=== PATIENT | female | born 1980 | race Caucasian/White ===

== ENCOUNTER 2022-02-23 18:47 | Emergency (ER) | payer BC, SELFPAY ==
[2022-02-23 18:50] VITALS: BP 125/79; PULSE 79; RESP 18; TEMP 36.6; O2SAT 99
[2022-02-23 19:42] VITALS: BP 122/75; PULSE 68; RESP 18; O2SAT 100
[2022-02-23] MEDS: METOCLOPRAMIDE HCL INJ 10 MG/2 ML VIAL IM (19:49)
[2022-02-23] MEDS: diphenhydrAMINE HCl CAP 25 MG CAPSULE 50 MG PO (19:49)
--- NOTE | 2022-02-23 20:22 | ED.HA ---
HPI - Headache General Chief Complaint: Headache Stated Complaint: VIVAR x 8 days Time Seen by Provider: 02/23/22 19:27 History of Present Illness HPI Narrative: About a week ago started having a throbbing headache, has had headaches like this before and some with history of migraines, though its been months since last time she has headache like this. She does have an appointment with her doctor however it's not til next week. She has no focal numbness or weakness, no difficulty walking, has been hard to sleep due to the pain. Related Data Allergies Allergy/AdvReac Type Severity Reaction Status Date / Time hydromorphone [From Dilaudid] Allergy Unknown Verified 02/23/22 19:41 tramadol Allergy Unknown Verified 02/23/22 19:41 Review of Systems Review of Systems: CONST: No fever. HEENT: No sore throat C/V: No chest pain RESP: No cough GI: No abdominal : No dysuria. M/S: No joint pain. SKIN: No rash. NEURO: [Headache, no focal numbness or weakness] PSYCH: [No depression] REPLACED BY [facility] Past Medical History Medical History (Updated 02/24/22 @ 01:10 by Trista Cade MD) Frequent headaches Exam Narrative: EXAMINATION OF ORGAN SYSTEMS/BODY AREAS: Constitutional: Vital signs per nursing GENERAL: Looks somewhat uncomfortable in bed but not ill appearing HEAD: Normal with no signs of head trauma. EYES: EOMI, conjunctiva normal ENT: Hearing grossly intact LUNGS: Nonlabored breathing. HEART: [Regular rate and rhythm] ABD: [Soft], [nontender to palpation] EXT: Normal range of motion SKIN: [No rashes or lesions.] NEURO: [Alert and oriented x 3. No gross focal sensory or strength deficits.] PSYCH: Normal affect Course Vital Signs Vital signs: Vital Signs Temperature 97.9 F 02/23/22 18:50 Pulse Rate 79 02/23/22 18:50 Respiratory Rate 18 02/23/22 18:50 Blood Pressure 125/79 02/23/22 18:50 Pulse Oximetry 99 02/23/22 18:50 Oxygen Delivery Room Air 02/23/22 18:50 Temperature 97.9 F 02/23/22 18:50 Pulse Rate 64 02/23/22 21:13 Respiratory Rate 18 02/23/22 21:13 Blood Pressure 108/70 02/23/22 21:13 Pulse Oximetry 99 02/23/22 21:13 Oxygen Delivery Room Air 02/23/22 19:42 MDM - Headache MDM Narrative Medical decision making narrative: 41 year old female presents to the emergency department for headache. Patient is hemodynamically stable. No focal neurological or cranial nerve deficits on exam. No meningeal signs. The headache was gradual in onset, it is not exertional and does not appear consistent with subarachnoid hemorrhage or intracranial bleeding. No trauma. Patient is given headache cocktail including Reglan, Benadryl. On reevaluation, the patient feels significantly better with the headache resolved. She feels great, is ambulating with normal steady gait. No neurological deficits. Patient is comfortable going home for outpatient follow-up with primary care physician and/or neurology and provided with strict return precautions, especially for worsening headaches, neck pain/stiffness, fever or weakness, numbness/tingling or persistent vomiting. Discharge Plan Discharge Clinical Impression: Headache Patient Disposition: Home, Self-Care Condition: Improved Instructions: Antibiotic Form, Acute Headache (ED) Additional Instructions: Come back to the ER if you feel worse; follow up with your doctor in the next 2 days. Follow-up/Referrals: Emil Garnica MD [Primary Care Provider] - 2 Days
[2022-02-23 21:13] VITALS: BP 108/70; PULSE 64; RESP 18; O2SAT 99
== END 2022-02-23 21:15 | disposition home or self-care (01) ==
PROVIDERS: Emergency Provider Emergency Medicine; PCP Family Medicine
DX: R51.9 Headache, unspecified (principal)
CPT/HCPCS: 96372; 99283; A9270; J2765

== ENCOUNTER 2022-03-14 12:21 | Outpatient (RCR) | payer BC, SELFPAY ==
--- NOTE | 2022-03-14 13:41 | PTOPEVAL1 ---
Assessment and note entered by Fred Verde, PT, DPT Evaluation Information Assessment Status Evaluation Diagnosis cervicalgia Onset chronic Subjective Information Pt states her neck is also sore and stiff which triggers migraines. She states her headaches have progressively gotten worse over this time. She does not report a JADA or anything that alters her pain. She reports 1 migraine day and a more mild lingering headache daily. Reported Pain Level Pain Score 4: Self Report Assessment PT Clinical Summary Joanne presents to therapy today for her initial evaluation with a diagnosis of cervicalgia. Today she demonstrates mild decreased cervical ROM in all directions. She demonstrates excellent shoulder ROM and good shoulder strength, neither of these increase pain. She has point tenderness with increased tissue density in her suboccipital and cervical paraspinals. Today she was instructed in a home stretching and strengthening program as well as given education on proper living mechanics to incorporate into her job. She is to complete her HEP on her own for a month and follow up with the clinic if needed. Plan of Care Interventions Hot Pack/Cold Pack,Manual Therapy,Neuro Re- education,Patient/Caregiver Educati,Therapeutic Activities,Therapeutic Exercise PT Services Indicated Yes Treatment Frequency and for follow up in one month if needed Duration These treatments will address the objective and functional deficits as defined above. The patient will be advanced safely and appropriately in order for the patient to progress towards his/her prior level of function. Additional exercises will be introduced and as well as a comprehensive home exercise program upon discharge, if needed, ?to ensure carryover of functional gains achieved in the clinic. This treatment plan has been reviewed and agreement upon by the patient.
--- NOTE | 2022-05-11 09:06 | PTOPDC ---
Assessment and note entered by Fred Verde, PT, DPT Evaluation Information Assessment Status Discharge - Pt Not Present Diagnosis cervicalgia Onset chronic Subjective Information Called and spoke to patient to follow up on HEP. She states she thinks the exercises are helping. She reports she still has mild headaches but her migraines have decreased significantly. Assessment PT Clinical Summary Joanne was evaluated on 03/14/22 and has been completing her HEP on her own. She will be discharged from skilled therapy services at this time. If she needs additional therapy at a later date she will need a new order. Plan of Care Interventions Hot Pack/Cold Pack,Manual Therapy,Neuro Re- education,Patient/Caregiver Educati,Therapeutic Activities,Therapeutic Exercise PT Services Indicated Yes Treatment Frequency and discharge Duration
== END 2022-05-11 13:39 | disposition home or self-care (01) ==
LOC: ANHGOSHPT 12:21
PROVIDERS: PCP Family Medicine; Visit Provider Family Medicine
DX: M54.2 Cervicalgia (principal); G89.29 Other chronic pain
CPT/HCPCS: 97110; 97140; 97161; 97530

== ENCOUNTER 2022-06-29 17:01 | Outpatient (CLI) | payer BC, SELFPAY ==
--- NOTE | ~2022-06-29 | XR_ITS ---
EXAMINATION: XR sinus min 3V DATE: 06/29/2022 17:54 INDICATION: Nasal polyp TECHNIQUE: AP, submental, Mahoney, open-mouth Mahoney and lateral and left and right lateral views of t he nasal bones were obtained. COMPARISON: None. FINDINGS: No fractures identified. Specifically the visualized le of the orbits and paranasal sinuses appea r intact. Nasal septum is midline. No nasal bone fracture identified. The left mastoid appears hypop neumatized. There is greater than expected density at the maxillary sinuses particularly on the right . There is also increased density at the cephalad aspect of the right nasal cavity and at the right f rontal sinus relative to the left. IMPRESSION: 1. Increased density at the bilateral maxillary sinuses, right greater than left,, right nasal cavity and at the right frontal sinus which could be due to fluid, mucosal thickening or polyps. 2. Hypopneumatized left mastoid. Reviewed, dictated and finalized at location A. IMPRESSION: 1. Increased density at the bilateral maxillary sinuses, right greater than lef t,, right nasal cavity and at the right frontal sinus which could be due to flu id, mucosal thickening or polyps. 2. Hypopneumatized left mastoid.
== END 2022-06-29 17:02 | disposition home or self-care (01) ==
PROVIDERS: PCP Family Medicine; Visit Provider Family Medicine
DX: J32.9 Chronic sinusitis, unspecified (principal)
CPT/HCPCS: 70220

== ENCOUNTER → 2022-09-08 13:48 | Outpatient (CLI) | payer BC, SELFPAY ==
--- NOTE | ~2022-09-08 | MM_ITS ---
EXAMINATION: MM screening [facility] BI w reuben HISTORY: Baseline screening mammogram TECHNIQUE: Craniocaudal and mediolateral oblique 3-D tomosynthesis images were obtained and synthetic 2-D images were generated. CAD analysis was submitted and interpreted. COMPARISON: None, baseline BREAST PARENCHYMAL COMPOSITION: The breasts are heterogeneously dense, which may obscure small masses . FINDINGS: RIGHT BREAST: There is a possible mass in the middle third of the outer breast best appreciated at th e anterior fibroglandular margin 4 cm from the nipple on the craniocaudal view. LEFT BREAST: No suspicious mass, calcification, or architectural distortion are identified to suggest malignancy. IMPRESSION: 1. Possible right breast mass. 2. Additional mammographic views and possible breast ultrasound are recommended to evaluate the possi ble right breast mass and establish a baseline given that this is the first mammographic examination. BI-RADS Category 0: Incomplete: Needs additional imaging evaluation. Reviewed, dictated and finalized at location A. IMPRESSION: 1. Possible right breast mass. 2. Additional mammographic views and possible breast ultrasound are recommended to evaluate the possible right breast mass and establish a baseline given that this is the first mammographic examination. BI-RADS Category 0: Incomplete: Needs additional imaging evaluation.
== END ==
PROVIDERS: PCP Family Medicine; Visit Provider Nurse Practitioner
DX: Z12.31 Encounter for screening mammogram for malignant neoplasm of breast (principal); R92.8 Other abnormal and inconclusive findings on diagnostic imaging of breast
CPT/HCPCS: 77063; 77067

== ENCOUNTER → 2022-09-13 13:41 | Outpatient (CLI) | payer BC, SELFPAY ==
--- NOTE | ~2022-09-13 | MMUS_ITS ---
EXAMINATION: MM diagnostic [facility] RT w reuben, US breast RT limited HISTORY: Possible right breast mass reported in middle third of outer breast near anterior fibrogland ular margin 4 cm from nipple on 09/08/2022 screening craniocaudal view TECHNIQUE: Additional 3-D tomosynthesis images of the right breast were performed and synthetic 2-D i mages were generated. CAD analysis was submitted and interpreted. High resolution upper outer and low er-outer quadrant right breast ultrasound was performed. COMPARISON: 09/08/2022 bilateral screening mammogram FINDINGS: MAMMOGRAPHIC FINDINGS: There is an approximately 3 x 4 mm circumscribed opacity anteriorly in the outer mid right breast at approximately 9:00 position. This has benign mammographic appearance. ULTRASOUND: 9:00 2.5 cm from nipple: Parallel circumscribed hypoechoic 2 x 4 x 3.6 mm benign-appearing lymph node . No suspicious mass or shadowing is detected. IMPRESSION: 1. Benign intramammary lymph node at 9:00; no mammographic or sonographic evidence of malignancy 2. Routine annual mammographic screening is recommended BI-RADS Category 2: Benign finding(s). Reviewed, dictated and finalized at location A. IMPRESSION: 1. Benign intramammary lymph node at 9:00; no mammographic or sonographic evide nce of malignancy 2. Routine annual mammographic screening is recommended BI-RADS Category 2: Benign finding(s).
== END ==
PROVIDERS: PCP Family Medicine; Visit Provider Family Medicine
DX: N63.10 Unspecified lump in the right breast, unspecified quadrant (principal)
CPT/HCPCS: 76642; 77061; 77065; G0279

== ENCOUNTER 2023-07-20 11:02 | Emergency (ER) | payer BC, SELFPAY ==
[2023-07-20 11:30] VITALS: BP 90/58; PULSE 81; RESP 18; TEMP 36.6; O2SAT 100
--- NOTE | 2023-07-20 12:02 | ED.UPPEXIN ---
HPI - Extremity Injury (Upper) General Chief Complaint: Extremity Injury, Upper Stated Complaint: Right Elbow pain Source: patient Mode of arrival: ambulatory Limitations: no limitations History of Present Illness HPI narrative: 43-year-old female presented for complaint of right elbow pain for 2 months. She states this started after yard work. Endorses pain with gripping. Reports normal range of motion, however she has pain with full extension. Has been taking ibuprofen. Denies radiating pain, numbness, tingling, weakness. Related Data Home Medications Medication Instructions Recorded Confirmed levothyroxine 75 mcg capsule 75 mcg PO DAILY 03/01/22 07/20/23 Allergies Allergy/AdvReac Type Severity Reaction Status Date / Time hydromorphone [From Dilaudid] Allergy Unknown Verified 07/20/23 11:40 tramadol Allergy Unknown Verified 07/20/23 11:40 Review of Systems Review of Systems: CONSTITUTIONAL: Denies body aches, fever, chills CARDIOVASCULAR: Denies chest pain, palpitations, or edema. RESPIRATORY: Denies cough or dyspnea. GASTROINTESTINAL: Denies abdominal pain, nausea, vomiting, or diarrhea. SKIN: Denies rash, itching, or wounds. MUSCULOSKELETAL: Reports right elbow pain NEUROLOGIC: Denies headache, numbness, tingling, or weakness. All systems reviewed & are unremarkable except as noted in HPI and below PMFSH Past Medical History Medical History Anxiety Breast mass, right Chronic neck pain Depression Frequent headaches Headache History of thyroid cancer Hypothyroidism (acquired) Migraine Thyroid cancer (~2008) Surgical History Surgical History H/O thyroidectomy (~2008) Family History Family History Father Alcoholism Grandparent Cancer Maternal great grandmother Breast Cancer Heart disease Cerebrovascular accident Maternal grandpa Alcoholism Hypertension Maternal Grandfather Daughter Anxiety and depression Son Anxiety and depression Social History Social History Smoking packs per day: 0.5 Smoking cigarettes per day: 10.0 Smoking status: Current every day smoker Tobacco type: cigarettes Alcohol intake: never Substance use: never Substance use type: does not use Lack of Transportation: No Lack of Food: Never True Current Housing: I Have Housing Concerned About Future Housing: No Difficulty Paying Gas/Electric Bills: No Difficulty Paying for Meds: No Currently Unemployed: No Education: High School Diploma/GED Difficulty w/ Childcare or Family Care: No Living arrangements: with family Occupation/Education: occupation Gender identity (if verbalized by the patient): Female Sexual Orientation (if Verbalized by the Patient): Straight or Heterosexual Spiritual care concerns: No Agree to blood products: Yes Comments At time of signature, I have reviewed and agree with nursing past medical, surgical, social and family history unless otherwise noted. Please see nursing chart for further information. There is no relevant family history pertinent to the presenting complaint Exam Narrative: GENERAL: Well-appearing, well-nourished, and in no acute distress. CHEST: Speaks in full sentences. No respiratory distress. HEART: Regular rate and rhythm. Normal and equal peripheral pulses. EXTREMITIES: Right arm/hand has normal strength and sensation, Full range of motion with flexion/extension of elbow with subjective pain with movement. Right lateral olecranon tender with palpation. No swelling, erythema, ecchymosis. No open wounds, or obvious deformity; alignment normal, pulse palpable and equal bilaterally, skin warm, dry, pink. Capillary refill less than 3 seconds. SKIN: Warm, dry, no rash. NEURO: Al
== END 2023-07-20 12:17 | disposition home or self-care (01) ==
PROVIDERS: Emergency Provider Nurse Practitioner Family; PCP Family Medicine
DX: M25.521 Pain in right elbow (principal); F17.210 Nicotine dependence, cigarettes, uncomplicated; E89.0 Postprocedural hypothyroidism; Z85.850 Personal history of malignant neoplasm of thyroid
CPT/HCPCS: 99213; G0463

== ENCOUNTER 2024-04-25 10:41 | Outpatient (CLI) | payer OTHER, SELFPAY ==
--- NOTE | ~2024-04-25 | CT_ITS ---
CLINICAL INDICATION: Abdominal pain COMPARISON: None. TECHNIQUE: Multiple contiguous axial images of the abdomen and pelvis were performed without the admi nistration of intravenous contrast The dose-length product (DLP) was 187.97 mGy-cm. Automated exposure control and iterative reconstruction technique were employed. FINDINGS/OBSERVATIONS: Visualized lower thorax: The bilateral lung bases are clear. The heart is of normal size, without pericardial effusion. Small hiatal hernia is present. Liver: The liver demonstrates homogeneous attenuation and is not enlarged measuring 18 cm in longitudinal di mension. Gallbladder and biliary system: The gallbladder is only minimally distended, and otherwise unremarkable. Pancreas: Limited evaluation of the pancreas secondary to the lack of intravenous contrast. Spleen: The spleen demonstrates homogeneous attenuation and is not enlarged measuring 7 cm in longitudinal di mension. Kidneys: The bilateral kidneys are unremarkable, without hydronephrosis or renal calculi. Adrenal glands: Unremarkable. Gastrointestinal tract: Fecal stasis within the colon. Appendix: The air-filled appendix is of normal caliber (axial series, images 115 through 119). Vasculature: Enlargement of the left gonadal vein extending into the pelvis, for which pelvic congestion syndrome is suspected No significant calcified atherosclerotic disease. Lymph nodes: No pathologically enlarged or morphologically suspicious lymph nodes within the retroperitoneum or at the root of the mesentery. Pelvic structures: The bladder is decompressed, limiting its evaluation. The uterus is anteverted and anteflexed, and otherwise unremarkable. Body wall and musculoskeletal: No significant degenerative disease within the lower thoracic or lumbosacral spine. IMPRESSION: Fecal stasis within the colon. Additional findings suggesting pelvic congestion syndrome for which clinical correlation is needed. Thank you for the opportunity to assist in the care of your patient. For questions or concerns regarding this interpretation, please reach out to me directly at . Reviewed, dictated and finalized at location A. IMPRESSION: Fecal stasis within the colon. Additional findings suggesting pelvic congestion syndrome for which clinical co rrelation is needed. Thank you for the opportunity to assist in the care of your patient. For questions or concerns regarding this interpretation, please reach out to me directly at [phone].
--- OUTSIDE RECORDS SUMMARY | 2024-04-25 12:29 | XMS_ITS | Referral Summary ---
Author Organization [facility] Address [address] [place] [address] Care Team Providers Care Rewriter Name Role Phone Unavailable Primary Care Provider Unavailabl e Source Comments [facility],non-owned Affiliates and Associated Physician Practices is amultiple site organization consisting of ambulatory clinics and hospital sitesin [place], [place], [place] and [place]. This disclosure is being madepursuant to the Care Everywhere program and may not contain all information available regarding this patient. Last updated 17.[facility] Social History Tobacco Use Types Packs/Day Years Used Date Smoking Tobacco: Never Assessed Sex and Gender Information Value Date Recorded Sex Assigned at Not on file Gender Identity Not on file Sexual Orientation Not on file Plan of Treatment Not on file
--- OUTSIDE RECORDS SUMMARY | 2024-04-25 12:29 | XMS_ITS ---
Author Organization [facility] Address [address] [address] Care Team Providers Care Potato Chip Fryer Name Role Phone KAL MARTINES Primary Care Provider Un available Marcelo Fuentes Unavailable [phone] REASON FOR VISIT Refill Medications Medication SIG (Take, Route, Frequency, Duration) Notes Start Date End Date Status Levothyroxine Sodium 75 MCG TAKE 1 TABLE T BY MOUTH ONCE DAILY ON MONDAY THROUGH MONDAY AND 2 TABLETS ON MONDAY for 90 days Active Social History Sex Assigned At : Social History Observation Description Sex Assigned At Female Encounters Encounter Location Date Provider Diagnosis [facility] [address] [address] 01/01/2024 Marcelo Fuentes Postprocedural hypothyroidism E89.0 Assessments Encounter Date Diagnosis (ICD Code) Assessment Notes Treatment Notes Treatment Clinical Notes Section Notes 01/01/2024 Postprocedural hypothyroidism (ICD-10 - E89.0) Plan Of Treatment Medication Medication Name Sig Start Date Stop Date Notes Levothyroxine Sodium 75 MCG TAKE 1 TABLE T BY MOUTH ONCE DAILY ON MONDAY THROUGH MONDAY AND 2 TABLETS ON MONDAY for 90 days Progress Notes * ELISE THOMAS SDOB:[birth year] (43 yo F)Acc No.[id number]:01/01/2024 Patient: Corby ELISE NAVARRO :1980 A ge:43 Y S ex:Female Address:[address], [place] [address] * Refills Refill Levothyroxine Sodium Tablet, 75 MCG, 102, TAKE 1 TABLET BY MOUTH ONCE DAILY ON MONDAY THROUGH MONDAY AND 2 TABLETS ON MONDAY, 90 days, Refills=0 * true * Date: Generated for Petrona trimble/Libertad/Sharri on: 0 04/25/2024 12:28 PM CDT
--- OUTSIDE RECORDS SUMMARY | 2024-04-25 12:29 | XMS_ITS | Patient Health Record ---
Author Organization [facility] Address [address] [facility] [address] [place] [address] Care Team Providers Care Mold Loft Worker Name Role Phone KAL MARTINES Primary Care Provider Un available Marcelo Fuentes Unavailable [phone] Adam Guevara Unavailable [phone] Allergies Allergen (clinical drug ingredient) Drug/Non Drug Allergy documented on EMR Reaction Allergy Type Onset Date Status DILATDID (uncoded) tachy Allergy A ctive NO LATEX ALLERGY (uncoded) Unknown Allergy Active tramadol traMADol itchy Drug Allergy Active Results Component Value Reference Range Notes TSH Reviewed date:09/02/2023 04:34:00 PM Interpretation:3.06 Performing Lab:[facility] [place], [address] [place], [address] Dulce Henderson MD Notes/Report: Received Date: NON-FASTING; NON-FASTING TSH 3.06 Reference Range > or = 20 Years 0.40-4.50 Ranges First trimester 0.26-2.66 Second trimester 0.55-2.73 Third trimester 0.43-2.91 T4, FREE Reviewed date:09/02/2023 04:34:01 PM Interpretation:1.3 Performing Lab:[facility] [place], [address] [place], [address] Dulce Henderson MD Notes/Report: Received Date: NON-FASTING; NON-FASTING T4, FREE 1.3 0.8-1.8 ng/dL Reason For Referral No Information Medications Medication SIG (Take, Route, Frequency, Duration) Notes Start Date End Date Status Levothyroxine Sodium 75 MCG TAKE 1 TABLE T BY MOUTH ONCE DAILY ON MONDAY THROUGH MONDAY AND 2 TABLETS ON MONDAY for 90 days Active BUPROPION (EQV-ZYBAN ADVANTAGE PACK) 150 mg/12 hours 1 tab(s) orally 2 times a day for 90 days Active Social History Tobacco Use: Social History Observation Description Date Details (start date - stop date) Current Smoker NA - NA Sex Assigned At : Social History Observation Description Sex Assigned At Female Tobacco Control (Standard) Question Answer Notes Tobacco use: Current smoker How often do you smoke cigarettes? Every day How many cigarettes a day do you smoke? 6-10 Are you interested in quitting? Thinking about q uitting Additional Findings: Tobacco user Light cigarett e smoker (1-9 cigs/day) Problems Problem Type SNOMED Code ICD Code Onset Dates Problem Status W/U Status Risk Notes Problem 87145249 Postprocedural hypothyroidism (E89.0) Active confirmed Problem 267064462 Personal history of malignant neoplasm of thyroid (Z85.850) Active confirmed Vital Signs Blood pressure diastolic 62 mm Hg 08/30/2023 Height 61.5 in 08/30/2023 Blood pressure systolic 100 mm Hg 08/30/2023 Weight 99.4 lbs 08/30/2023 BMI 18.48 kg/m2 08/30/2023 Encounters Encounter Location Date Provider Diagnosis [facility] [address] [address] 08/30/2023 Adam Guevara Postprocedural hypothyroidism E89.0 ; Personal history of malignant neoplasm of thyroid Z85.850 and Tobacco abuse Z72.0 [facility] [address] [facility] [address] [place] [address] 08/14/2023 Marcelo Alfredo [facility] [address] [facility] [address] [place] [address] 09/07/2023 Marcelo Silvestreu [facility] [address] [facility] [address] [place] [address] 01/01/2024 Marcelo Raju Postprocedural hypothyroidism E89.0 Assessments Encounter Date Diagnosis (ICD Code) Assessment Notes Treatment Notes Treatment Clinical Notes Section Notes 08/30/2023 Postprocedural hypothyroidism (ICD-10 - E89.0) Clinically euthyroid. TSH 0.04 on 100 mcg before . 2 months TSH < 0.01 on 112 mcg 12/2010 TSH 0.02 on 100 mcg. May 2014 plan: on 112 mcg a day August 2019: On 112 mcg 6 days a week June 2022: Clinically euthyroid, no complaints She has low weight at baseline, reports always being around 100 lbs On levothyroxine 75 mcg daily USG ordered August 2023: Clinically euthyroid, no complaints levothyroxine 75 mcg daily US from July 2022 unremarkable 01/01/2024 Postprocedural hypothyroidism (ICD-10 - E89.0) 08/30/2023 Personal history of malignant neoplasm of thyroid (ICD-10 - Z85.850) [facility] records reviewed. 01/2009 1.1 cm follicular variant papillary thyroid cancer. [facility] 03/16/2009, Stable. TSH goal 0.1-0.4. 07/05/2009 thyroglobulin levels normal. 12/2010 Thyroglobulin levels normal and antibodies negative. 2011 whole body scan negative May 2014 plan: Whole Body scan wnl July 2017: Thyroglobulin levels and Ab and USG normal August 2018: Labs alone today USG in 2022. 08/30/2023 Tobacco abuse (ICD-10 - Z72.0) Plan Of Treatment Pending Test Test Name Order Date Ultrasound : Head, Neck, Thyroid 024 Thyroglobulin Quantitative and Antibody 08/30/2023 Insurance Providers Payer Name Payer Address Payer Phone Subscriber Number Group Number Insured Name Patient Relationship to Insured Coverage Start Date Coverage End Date [facility] [address] [place] [address] [id number] ARSEN WILLINGHAM Spouse - patient is the spouse of the insured 2 Medical (General) History Medical History History ICD Code PALPATATIONS MIGRAINES ANXIETY THYROID CANCER 2008 Thyroidectomy 2009 and H[facility]GES RX 2009. Surgical History Surgery Date(Month/Year) THYROIDECTOMY-CANCER 02/12/2009 Hospitalization History Reason Date(Month/Year) vaginal 07/2010
--- OUTSIDE RECORDS SUMMARY | 2024-04-25 12:29 | XMS_ITS | Patient Health Summary ---
Author Organization [facility] Address [address] [facility] [place] [address] Care Team Providers Care Air Tube Releaser Name Role Phone Unavailable Primary Care Provider Unavailabl e Note from [facility],non-owned Affiliates and Associated Physician Practices is amultiple site organization consisting of ambulatory clinics and hospital sitesin [place], [place], [place] and [place]. This disclosure is being madepursuant to the Care Everywhere program and may not contain all information available regarding this patient. Last updated 17.[facility] Social History Tobacco Use Types Packs/Day Years Used Date Smoking Tobacco: Never Assessed Sex and Gender Information Value Date Recorded Sex Assigned at Not on file Gender Identity Not on file Sexual Orientation Not on file Procedures * NM THYROID WHOLE BODY SCAN(Performed 07/18/2014) Performed for Malignant neoplasm of thyroid gland (HCC) Results * NUC THYROID CA METS SCAN WHOLE BODY [[id number]] (07/18/2014 1:45 PM CDT) Anatomical Region Laterality Modality Chest Nuclear Digisoni cs 07/18/2014 4:29 PM CDT Impressions 07/18/2014 4:36 PM CDT Unremarkable whole-body iodine scintigraphy. I do not see any scintigraphic evidence of residual thyroid tissue or metastatic disease.. Narrative 07/18/2014 4:36 PM CDT I-131 WHOLE BODY IMAGING INDICATION: Post thyroidectomy for reported carcinoma 5 years ago.. RADIOPHARMACEUTICAL: 5 mCi I-131, p.o. on 07/16/2014 FINDINGS: She reportedly was given Thyrogen injections. I do not have any prior studies available for comparison. Whole-body and directed scintigraphic images of the head, neck, chest, abdomen and pelvis show a physiologic distribution of the radiopharmaceutical. Activity is seen within the nasal region and salivary glands, stomach and bowel. I do not see any activity within the base of the neck. Similarly, no suspicious extrathyroidal activity is seen. Procedure Note Moe Seaman MD - 07/18/2014 I-131 WHOLE BODY IMAGING INDICATION: Post thyroidectomy for reported carcinoma 5 years ago.. RADIOPHARMACEUTICAL: 5 mCi I-131, p.o. on 07/16/2014 FINDINGS: She reportedly was given Thyrogen injections. I do not have any prior studies available for comparison. Whole-body and directed scintigraphic images of the head, neck, chest, abdomen and pelvis show a physiologic distribution of the radiopharmaceutical. Activity is seen within the nasal region and salivary glands, stomach and bowel. I do not see any activity within the base of the neck. Similarly, no suspicious extrathyroidal activity is seen. IMPRESSION Unremarkable whole-body iodine scintigraphy. I do not see any scintigraphic evidence of residual thyroid tissue or metastatic disease.. Marcelo Fuentes MD NM ORDERABLES
--- OUTSIDE RECORDS SUMMARY | 2024-04-25 12:29 | XMS_ITS ---
Author Organization [facility] Address [address] [facility] [address] [place] [address] Care Team Providers Care Vessel Slagman Name Role Phone KAL MARTINES Primary Care Provider Un available Marcelo Fuentes Unavailable [phone] REASON FOR VISIT F/u appt Social History Sex Assigned At : Social History Observation Description Sex Assigned At Female Encounters Encounter Location Date Provider Diagnosis [facility] [address] [facility] [address] [place] [address] 09/07/2023 Marcelo Fuentes Plan Of Treatment No Information Progress Notes * ELISE THOMAS SDOB:[birth year] (43 yo F)Acc No.[id number]:09/07/2023 Patient: Corby ELISE NAVARRO :1980 A ge:43 Y S ex:Female Address:[address], [place] [address] * true * Date: Generated for Printi ng/Faxing/eTransmitting on: 0 04/25/2024 12:29 PM CDT
--- OUTSIDE RECORDS SUMMARY | 2024-04-25 12:29 | XMS_ITS ---
Author Organization [facility] Address [address] [place] [address] Care Team Providers Care Junior Network Engineer Name Role Phone MALROHANYANNIAna Primary Care Provider Un available Marcelo Fuentes Unavailable [phone] Adam Guevara Unavailable [phone] Allergies Allergen (clinical drug ingredient) Drug/Non Drug Allergy documented on EMR Reaction Allergy Type Onset Date Status DILATDID (uncoded) tachy Allergy A ctive NO LATEX ALLERGY (uncoded) Unknown Allergy Active tramadol traMADol itchy Drug Allergy Active Results Component Value Reference Range Notes TSH Reviewed date:09/02/2023 04:34:00 PM Interpretation:3.06 Performing Lab:[facility], [address] [place], [address] Dulce Henderson MD Notes/Report: Received Date: NON-FASTING; NON-FASTING TSH 3.06 Reference Range > or = 20 Years 0.40-4.50 Ranges First trimester 0.26-2.66 Second trimester 0.55-2.73 Third trimester 0.43-2.91 T4, FREE Reviewed date:09/02/2023 04:34:01 PM Interpretation:1.3 Performing Lab:[facility], [facility], [address] [place], [address] Dulce Henderson MD Notes/Report: Received Date: NON-FASTING; NON-FASTING T4, FREE 1.3 0.8-1.8 ng/dL Medications Medication SIG (Take, Route, Frequency, Duration) Notes Start Date End Date Status BUPROPION (EQV-ZYBAN ADVANTAGE PACK) 150 mg/12 hours 1 tab(s) orally 2 times a day for 90 days Active Levothyroxine Sodium 75 MCG TAKE 1 TABLE T BY MOUTH ONCE DAILY ON MONDAY THROUGH MONDAY AND 2 TABLETS ON MONDAY Active Social History Tobacco Use: Social History [...] user Light cigarett e smoker (1-9 cigs/day) Vital Signs Weight 99.4 lbs 08/30/2023 BMI 18.48 kg/m2 08/30/2023 Height 61.5 in 08/30/2023 Blood pressure systolic 100 mm Hg 08/30/19 24 Blood pressure diastolic 62 mm Hg 024 Encounters Encounter Location Date Provider Diagnosis [facility] [address] [facility] [address] [place] [address] 08/30/2023 Adam Guevara Postprocedural hypothyroidism E89.0 ; Personal history of malignant neoplasm of thyroid Z85.850 and Tobacco abuse Z72.0 Assessments Encounter Date Diagnosis (ICD Code) Assessment [...] mcg daily US from July 2022 unremarkable 08/30/2023 Personal history of malignant neoplasm of [...] abuse (ICD-10 - Z72.0) Plan Of Treatment Medication Medication Name Sig Start Date Stop Date Notes Levothyroxine Sodium 75 MCG TAKE 1 TABLE T BY MOUTH ONCE DAILY ON MONDAY THROUGH MONDAY AND 2 TABLETS ON MONDAY Pending Test Test Name Order Date Ultrasound : Head, Neck, Thyroid 024 Thyroglobulin Quantitative and Antibody 08/30/2023 Next Appt Details Follow Up: 1 Year, Reason: Progress Notes * WILLIAM ELISE SDOB:[birth year] (43 yo F)Acc No.[id number]:08/30/2023 [facility] Patient: ELISE GEE Provider: Nain Guevara PA-C :1980 A ge:43 Y S ex:Female Date:08/30/2023 Address:[address] [place] [address] [facility] Pcp:KAL MARTINES Subjective: * Chief Complaints: * * HPI: I nterim History: Denies : Tests/Studies:. Denies : Consultations. Denies : Surgery. Denies : Hospitalizations. Denies : Emergency Department visits. Denies : Medication changes. Denies : History since last visit. Denies : Changes in PMH S jesenia 0 07/05/2022. T hyroid cancer: Thyroidectomy 1 04/07/08. Ablation R AI Rx 03/20/2009. WHole Body Scan F eb 2009. TSH 0 .04 on 06/2009 on 100 mcg. Thyroglobulin nl. T hyroid Cancer Prognosis: Age L ess than 40. Distant Metastasis N one. Histology F ollicular Variant Papillary cancer. Tumor Size 1 .1 cm. Extrathyroidal invasion N one. Multicentricity N one. Lymph node metastasis N one. Intrathyroidal invasion N one. H ypothyroidism: on 112 mcg qd. Denies : tiredness,sleepiness. Denies : weight gain. Denies : cold intolerance. Denies : hoarseness. Denies : neck swelling. Denies : aches, pains, muscle stiffness. Denies : depression. Denies : psychosis. Denies : constipation. Denies : menstrual irregularities. Labs TSH 1.7 on 88 mcg 1 02/2010 TSH 0.02 on 100 mcg a day.. Rx L evothyroxine 100 mcg. * ROS: R OS: As in HPI. All other systems negative (see attached history form in progress notes) y es. * Medical History: * Surgical History: T HYROIDECTOMY-CANCER 02/12/2009 * Hospitalization/Major Diagno stic Procedure: v aginal 07/2010 * Family History: F ather: alive, diagnosed with [facility]. M other: alive. M aternal Grand Father: Stroke. Negative family history of Breast, Ovarian or Colon Cancer Negative family history of Breast, Ovarian or Colon Cancer. * Social History: A Tobacco USe: T obacco Control (Standard) T obacco use: C urrent smoker H ow often do you smoke cigarettes? E very day H ow many cigarettes a day do you smoke? 6 -10 A re you interested in quitting? T hinking about quitting A dditional Findings: Tobacco user L ight cigarette smoker (1-9 cigs/day) * Medications: T akingBUPROPION (EQV-ZYBAN ADVANTAGE PACK) 150 mg/12 hours tablet, extended release 1 tab(s) orally 2 times a day Levothyroxine Sodium 75 MCG Tablet TAKE 1 TABLET BY MOUTH ONCE DAILY ON MONDAY THROUGH MONDAY AND 2 TABLETS ON MONDAY Medication List reviewed and reconciled with the patientTaking BUPROPION (EQV-ZYBAN ADVANTAGE PACK) 150 mg/12 hours tablet, extended release 1 tab(s) orally 2 times a day Taking Levothyroxine Sodium 75 MCG Tablet TAKE 1 TABLET BY MOUTH ONCE DAILY ON MONDAY THROUGH MONDAY AND 2 TABLETS ON MONDAY Medication List reviewed and reconciled with the patient * Allergies: D ILATDID: tachytraMADol: itchyNO LATEX ALLERGYno[Allergies Verified] Objective: * Vitals: W t: 99.4 lbs, BMI:18.48Index, Ht: 61.5 in, BP:100/62mm Hg, HR: 66 /min. * Examination: G eneral Examination: General Appearance: W ell developed and well- nourished, NAD. Skin: N o rash or skin lesions. HEENT: N ormocephalic, atraumatic. Oral Cavity N ormal, moist mucus membranes. Neck, Thyroid : S upple, no thyromegaly, no lymphadenopathy, no JVD, no carotid bruit. Heart: R RR, normal S1S2, no murmur, rub, or gallop. Lungs: C lear to auscultation bilaterally, no wheezes, rhonchi, or rales. Abdomen: S oft, NT/ND, BS present, no guarding or rebound, no masses palpated, no hepatosplenomegaly. Extremities: N o clubbing, cyanosis, or edema, pulses 2+ bilaterally. Neurologic Exam: N on-focal exam, CN's II-XII grossly intact. * Physical Examination: Assessment: * Assessment: 1. P ostprocedural hypothyroidism - E89.0 (Primary) 2 . P ersonal history of malignant neoplasm of thyroid - Z85.850 3 . T obacco abuse - Z72.0 ? Plan: * Treatment: Value Reference Range T SH 3.06 - mIU/L * This lab was reviewed by Edabdi in [facility] on 09/02/2023 at 16:34 PM CDT ?LAB: Thyroglobulin Quantitative and Antibody ?LAB: T4, FREE* Value Reference Range T 4,Free(Direct) 1.3 0.8-1.8 - ng/dL * This lab was reviewed by Edw in [facility] on 09/02/2023 at 16:34 PM CDT ?Imaging: Ultrasound : Head, Neck, Thyroid Clinical Notes:Clinically euthyroid. TSH 0.04 on 100 mcg before .2 months TSH < 0.01 on 112 mcg12/2010 TSH 0.02 on 100 mcg.May 2014 plan: on 112 mcg a day August 2019: On 112 mcg 6 days a week June 2022: Clinically euthyroid, no complaints She has low weight at baseline, reports always being around 100 lbs On levothyroxine 75 mcg daily USG ordered August 2023: Clinically euthyroid, no complaints levothyroxine 75 mcg daily US from July 2022 unremarkable??2.?Personal history of malignant neoplasm of thyroid? Clinical Notes:OLd records reviewed. 01/2009 1.1 cm follicular variant papillary thyroid cancer.RAIRX 03/16/2009, Stable. TSH goal 0.1-0.4.07/05/2009 thyroglobulin levels normal.12/2010 Thyroglobulin levels normal and antibodies negative.2011 whole body scan negativeApril 2014 plan: Whole Body scan wnlJune 2018: Thyroglobulin levels and Ab and USG normal August 2018: Labs alone today USG in 2022. ?? * Procedure Codes: * Preventive Medicine: Counseling: C valeryeling Below Normal BMI Follow-up D ietary education for weight gain BMI Management Y es Tobacco Cessation Intervention 0 07/05/2022 Patient counseled on the dangers of tobacco use and urged to quit B P Management: PHYSICAL ACTIVITY RECOMMENDATION: R ecommendation to exercise WEIGHT REDUCTION RECOMMENDATION: T arget weight discussed PRE-HYPERTENSIVE FOLLOW-UP PLAN: F ollow-up 1 week FIRST HYPERTENSIVE BP READING FOLLOW-UP PLAN: F ollow-up 1 week LIFESTYLE RECOMMENDATION: H ypertension education * Follow Up: 1 Year * Billing Information: * Visit Code: 03452 Office Visit Est Pt Level 3. * Procedure Codes: * Sign off status: Completed true * Provider: Nain Guevara PA-C Date: 0 08/30/2023 Generated for Petrona ng/Fasohang/eTransmitting on: 0 04/25/2024 12:28 PM CDT History and Physical Notes * HPI (History of Present Illness) Category Sub-Category Detail Notes Category Not es Interim History Tests/Studies: Consultations Hospitalizations Emergency Department visits Changes in PMH Since 07/05/2022 History since last visit Medication changes Surgery Hypothyroidism tiredness,sleepiness weight gain cold intolerance hoarseness neck swelling aches, pains, muscle stiffness depression psychosis constipation menstrual irregularities Labs 04/2009 TSH 1.7 on 88 mcg 12/2010 TSH 0.02 on 100 mcg a day. Rx Levothyroxine 100 mc g Thyroid cancer Thyroidectomy 02/04/09 Ablation HODGES Rx 03/20/2009 WHole Body Scan Mar 2009 TSH 0.04 on 06/2009 on 10 0 mcg Thyroglobulin 06/2009 nl Thyroid Cancer Prognosis Age Less than 40 Distant Metastasis None Histology Follicular Variant P apillary cancer Tumor Size 1.1 cm Extrathyroidal invasion None Multicentricity None Lymph node metastasis None Intrathyroidal invasion None Examination Category Sub-Category Detail Notes Category Not es General Examination HEENT: Normocephalic, atraum atic Neck, Thyroid : Supple, no thyromega ly, no lymphadenopathy, no JVD, no carotid bruit Heart: RRR, normal S1S2, no murmur, rub, or gallop Lungs: Clear to auscultatio n bilaterally, no wheezes, rhonchi, or rales Abdomen: Soft, NT/ND, BS pres ent, no guarding or rebound, no masses palpated, no hepatosplenomegaly Extremities: No clubbing, cyanosi s, or edema, pulses 2+ bilaterally General Appearance: Well developed and w ell- nourished, NAD Skin: No rash or skin lesi ons Neurologic Exam: Non-focal exam, CN's II-XII grossly intact Oral Cavity Normal, moist mucus membranes
--- OUTSIDE RECORDS SUMMARY | 2024-04-25 12:29 | XMS_ITS | Clinical Summary ---
Author Organization [facility] Address [address] [place] [address] Care Team Providers Care Diversified Crops I Farmworker Name Role Phone Unavailable Primary Care Provider Unavailabl e Allergies No known active allergies Medications levothyroxine (SYNTHROID) 125 mcg tablet Take 1 Tablet (125 mcg) by mouth daily hop separator. 30 Tablet 1 01/19/2017 Active FLUoxetine (PROzac) 10 mg tabletIndication s: anxiety Take 1 Tablet (10 mg) by mouth daily. 30 Tablet 2 04/18/2017 Active medroxyPROGESTER one (PROVERA) 10 mg tabletIndication s:Abnormal uterine bleeding (AUB) Take 1 Tablet (10 mg) by mouth daily. 30 Tablet 1 05/29/2017 Active Active Problems Problem Noted Date Diagnosed Date Bilateral sciatica 12/07/2016 Migraine without aura and wi thout status migrainosus, not intractable 08/29/2016 Acquired hypothyroidism 08/01/2016 Tobacco use 11/12/2014 Underweight 08/10/2013 Osteopenia 08/10/2013 Resolved Problems Problem Noted Date Diagnosed Date Resolved Date arrhythmia affecting p regnancy, antepartum 12/07/2016 04/18/2017 History of delivery, currently in third trimester 10/24/2016 04/18/2017 Short cervix during pregnanc y in second trimester 10/24/2016 04/18/2017 Overview (10/24/2016): With funneling AMA (advanced maternal age) multigravida 35+ 7 04/18/2017 care, subsequent 08/01/2016 04/18/2017 Family History Medical History Relation Name Comments Healthy Father Stroke Maternal Grandfather Healthy Mother Cancer Neg Hx Relation Name Status Comments Brother Alive Father Alive Maternal Grandfather Alive Maternal Grandmother Alive Mother Alive Paternal Grandfather Paternal Grandmother Alive Social History Tobacco Use Types Packs/Day Years Used Date Smoking Tobacco: Every Day Cigarettes Smokeless Tobacco: Never Tobacco Cessation:Counseling Given: No Alcohol Use Standard Drinks/Week Comments Yes 0 (1 standard drink = 0.6 oz pur e alcohol) Comments No Sex and Gender Information Value Date Recorded Sex Assigned at Not on file Legal Sex Female 10:20 AM INSIDE SALES LEAD Gender Identity Not on file Sexual Orientation Not on file Occupation Industry Job Start Date Job End Date Not on file Not on file Not on file Not on file Last Filed Vital Signs Vital Sign Reading Time Taken Comments Blood Pressure 110/60 05/29/2017 4:25 PM CDT Pulse 85 03/16/2012 10:26 AM INSIDE SALES LEAD Temperature 37.6 C (99.7 F) 03/16/2012 10:26 AM INSIDE SALES LEAD Respiratory Rate 18 03/16/2012 10:26 AM INSIDE SALES LEAD Oxygen Saturation 99% 03/16/2012 10:26 AM INSIDE SALES LEAD Inhaled Oxygen Concentration - - Weight 46.7 kg (103 lb) 05/29/2017 4:25 PM CDT Height 152.4 cm (5') 05/29/2017 4:25 PM CDT Body Mass Index 20.12 05/29/2017 4:25 PM CDT Plan of Treatment Health Maintenance Due Date Last Done Comments DTAP/TDAP/TD VACCINES (1 - Tdap) 1997 HEPATITIS B VACCINES (1 of 3 - 19+ 3-dose series) 1997 BREAST CANCER SCREENING 2018 CERVICAL CANCER SCREENING 08/02/20192016, 08/09/2013 COLORECTAL SCREENING 07/12/2023 Colorectal Cancer Screening 07/12/2023 FIT-DNA Q 3 years 07/12/2023 FIT/FOBT Q 1 year 07/12/2023 Flex Sig/CT Colonography Q 5 years 07/12/2023 INFLUENZA VACCINE (#1) 2023 HPV VACCINES Aged Out No longer eligi ble based on patient's age to complete this topic Procedures Procedure Name Priority Date/Time Associated Diagnosis Comments CERV/VAG CYTO SCREEN PAP W/HPV Routine 08/01/2016 1:21 PM CDT Screening for malignant neoplasm of cervix from Last 3 Months or Most Recently Relevant to Health Maintenance Results * CERV/VAG CYTOPATH, THIN PREP SUPERVISOR BRIAR SHOP AND HPV (08/01/2016 1:21 PM CDT) CLINICAL INFORMATION SCREENING 08/08/2016 10:26 AM CDT [facility] LAST MENSTRUAL PERIOD SEE COMMENT 08/08/2016 10:26 AM CDT [facility] Comment:INFORMATION NOT PROV IDED PREV PAP: SEE COMMENT 08/08/2016 10:26 AM CDT [facility] Comment:INFORMATION NOT PROV IDED PREV BX: SEE COMMENT 08/08/2016 10:26 AM CDT [facility] Comment:INFORMATION NOT PROV IDED SOURCE Endocervix 08/08/2016 10:26 AM CDT [facility] ADEQUACY: SEE COMMENT 08/08/2016 10:26 AM CDT [facility] Comment: Satisfactory for evaluation. Endocervical/transformation zone component present. Age and/or menstrual status not provided PAP INTERP SEE COMMENT 08/08/2016 10:26 AM CDT [facility] Comment:Negative for intraep ithelial lesion or malignancy. COMMENT SEE COMMENT 08/08/2016 10:26 AM CDT [facility] Comment: This Pap test has been evaluated with computer assisted technology. GLASS RIBBON MACHINE OPERATOR: SEE COMMENT 2016 10:26 AM CDT [facility] Comment: TMK, CT(ASCP) CT screening location: [place] [address] [place] [address] HPV E6/E7 Not Detected Not Detected 08/08/2016 10:26 AM CDT [facility] Comment: This test was performed using the APTIMA HPV Assay ([employer] This assay detects E6/E7 viral messenger RNA (mRNA) from 14 high-risk HPV types (16,18,31,33,35,39,45,51,52,56,58,59,66,68). Genital SWAB OF ENDOCERVIX / Unknown 08/01/2016 1:21 PM CDT 08/01/2016 10:03 PM CDT Narrative [facility] - 08/08/2016 10:26 AM CDT Performing Organization Information: Site ID: [id number] Name: [facility] Address: [address] [address] Director: Dulce Henderson MD us Cara Fowler MD PATHOLOGY/CYTOLOGY ORDERABLES Final Result [facility] from Last 3 Months or Most Recently Relevant to Health Maintenance Insurance [employer] BLUE ACCESS/TRUE BLUE PPO
--- OUTSIDE RECORDS SUMMARY | 2024-04-25 12:29 | XMS_ITS | Clinical Summary ---
Author Organization [facility] Address [address] [place] [address] Care Team Providers Care Tube Man Name Role Phone Unavailable Primary Care Provider Unavailabl e Source Comments [facility],non-owned Affiliates and Associated Physician Practices is amultiple site organization consisting of ambulatory clinics and hospital sitesin [place], [place], [place] and [place]. This disclosure is being madepursuant to the Care Everywhere program and may not contain all information available regarding this patient. Last updated 17.[facility] Social History Tobacco Use Types Packs/Day Years Used Date Smoking Tobacco: Never Assessed Sex and Gender Information Value Date Recorded Sex Assigned at Not on file Gender Identity Not on file Sexual Orientation Not on file Plan of Treatment Health Maintenance Due Date Last Done Comments COLOGUARD (AGES 45-75) - COL ON CA SCREENING 1978 COLON MONITORING 1978 COLONOSCOPY - COLON CA SCREENING 1978 CT COLONOGRAPHY - COLON CA SCREENING 1978 Colorectal Cancer Screening 1978 FIT - COLON CA SCREENING 1978 FLEX SIG - COLON CA SCREENING 1978 LIPID TESTING 1978 MAMMOGRAM 1978 PAP SMEAR 1978 HIV SCREENING 1993 HEPATITIS C SCREENING 07/06/1996 DTAP/TDAP/TD VACCINES (1 - Tdap) 1997 HEPATITIS B VACCINE (1 of 3 - 19+ 3-dose series) 1997 COVID-19 VACCINE ( - 2023-2 5 season) 2023 INFLUENZA VACCINE (#1) 2023 DEPRESSION SCREENING 02/14/2024 ZOSTER VACCINE (1 of 2) 2028 HIB VACCINE Aged Out No longer eligi ble based on patient's age to complete this topic HPV VACCINE Aged Out No longer eligi ble based on patient's age to complete this topic MENINGOCOCCAL (Group B) VACC INE SHARED DECISION-MAKING Aged Out No longer eligibl e based on patient's age to complete this topic MENINGOCOCCAL GROUPS A/C/Y/W VACCINE Aged Out No longer eligible b ased on patient's age to complete this topic PNEUMOCOCCAL VACCINE Aged Out No long er eligible based on patient's age to complete this topic
== END 2024-04-25 10:42 | disposition home or self-care (01) ==
PROVIDERS: PCP Family Medicine; Visit Provider Nurse Practitioner Family
DX: K56.41 Fecal impaction (principal)
CPT/HCPCS: 74176

== ENCOUNTER 2024-06-03 07:56 | Day surgery (SDC) | payer OTHER, SELFPAY ==
--- NOTE | 2024-06-03 07:03 | WPDANESEPPF ---
Anes - Initial Pre Proc Eval Procedure: Operation Date: 06/03/24 10:00 Proposed Procedures p Diagnostic Colonoscopy - Alfredo Prieto MD Date/Time: 06/03/24 07:03 Surgeon: Alfredo Prieto MD Pre Op Diagnosis: Slow Transit Constipation Patient Data Age: 43 Gender: F Height: 1.52 m Weight: 47 kg Allergies Allergy/AdvReac Type Severity Reaction Status Date / Time hydromorphone (From Dilaudid) Allergy Severe Shortness Verified 06/03/24 08:30 of breath tramadol Allergy Itching Verified 06/03/24 08:30 Home Medications ?Medication ?Instructions ?Recorded ?Confirmed ?Type cholecalciferol (vitamin D3) 50 50 mcg PO DAILY #90 tabs 08/28/23 06/03/24 Rx mcg (2,000 unit) tablet fluoxetine 20 mg capsule 20 mg PO DAILY #90 caps 04/15/24 06/03/24 Rx levothyroxine 75 mcg tablet 75 mcg PO DAILY #90 tabs 04/23/24 06/03/24 Rx (Synthroid) atogepant 10 mg tablet (Qulipta) See Rx Instructions .Route 06/03/24 Rx .COMPLEX #30 tabs Patient hx anesthesia problems: none Family hx anesthesia problems: none Results Review: All pre-operative results and documents have been reviewed as part of the pre-operative evaluation. [facility] Past Medical History Medical History Vitamin D deficiency, unspecified Lateral epicondylitis of right elbow Migraine Depression Breast mass, right Hypothyroidism (acquired) History of thyroid cancer (~2008) Chronic neck pain Anxiety Surgical History Surgical History H/O thyroidectomy (~2008) Family History Family History Father Alcoholism Grandparent Cancer Maternal great grandmother Breast Cancer Heart disease Cerebrovascular accident Maternal grandpa Alcoholism Hypertension Maternal Grandfather Daughter Anxiety and depression Son Anxiety and depression Social History Social History Smoking packs per day: 0.25 Smoking cigarettes per day: 5.0 Years smoked: 20 Smoking pack-years: 5.00 Smoking status: Current every day smoker Tobacco type: cigarettes Alcohol intake: never Substance use: never Substance use type: does not use Lack of Transportation: No Lack of Food: Never True Current Housing: I Have Housing Concerned About Future Housing: No Difficulty Paying Gas/Electric Bills: No Difficulty Paying for Meds: No Currently Unemployed: No Education: High School Diploma/GED Difficulty w/ Childcare or Family Care: No Living arrangements: with family Additional living arrangements comments: Occupation/Education: occupation Gender identity (if verbalized by the patient): Female Sexual Orientation (if Verbalized by the Patient): Straight or Heterosexual Spiritual care concerns: No Agree to blood products: Yes Anes - Eval Final PreProcedure Day of Procedure 06/03/24 07:03 Patient weight: normal Heart: regular rate and rhythm Lungs: clear to auscultation and normal air movement Airway: Mallampati scale class II Neurological: alert and oriented Last oral intake: >/= 8 hours ASA classification: II Emergent: no Anesthetic plan: proceed Anesthesia type and monitoring: general GIVS and standard monitoring Results Review: All pre-operative results and documents have been reviewed as part of the pre-operative evaluation. Informed Consent: The patient's anesthetic plan and its attendant risks and benefits were discussed with the patient/family/POA. Questions were solicited and answers provided to the satisfaction of the patient/family/POA.
[2024-06-03 08:39] VITALS: BMI 19.4
[2024-06-03 08:40] VITALS: BP 100/82; PULSE 96; RESP 16; TEMP 36.3; O2SAT 100
--- OUTSIDE RECORDS SUMMARY | 2024-06-03 08:48 | XMS_ITS | Patient Health Record ---
Author Organization [facility] Address [address] [facility] [address] [place] [address] Care Team Providers Care Facialist Name Role Phone KAL MARTINES Primary Care Provider Un available Marcelo Fuentes Unavailable [phone] Adam Guevara Unavailable [phone] Allergies Allergen (clinical drug ingredient) Drug/Non Drug Allergy documented on EMR Reaction Allergy Type Onset Date Status DILATDID (uncoded) tachy Allergy A ctive NO LATEX ALLERGY (uncoded) Unknown Allergy Active tramadol traMADol itchy Drug Allergy Active Results Component Value Reference Range Notes TSH Reviewed date:09/02/2023 04:34:00 PM Interpretation:3.06 Performing Lab:[facility], [facility], [address] [place], [address] Dulce Henderson MD Notes/Report: NON-FASTING; NON-FASTING Received Date: TSH 3.06 Reference Range > or = 20 Years 0.40-4.50 Ranges First trimester 0.26-2.66 Second trimester 0.55-2.73 Third trimester 0.43-2.91 T4, FREE Reviewed date:09/02/2023 04:34:01 PM Interpretation:1.3 Performing Lab:[facility], [facility], [address] [place], [address] Dulce Henderson MD Notes/Report: Received Date: NON-FASTING; [...] Problem Status W/U Status Risk Notes Problem [id number] Postprocedural hypothyroidism (E89.0) Active confirmed Problem [id number] Personal history of malignant neoplasm of thyroid (Z85.850) Active confirmed Vital Signs Blood pressure diastolic 62 mm Hg 08/30/2023 Height 61.5 in 08/30/2023 Blood pressure systolic 100 mm Hg 08/30/2023 Weight 99.4 lbs 08/30/2023 BMI 18.48 kg/m2 08/30/2023 Encounters Encounter Location Date Provider Diagnosis [facility] [address] [address] 08/30/2023 Adma Guevara Postprocedural hypothyroidism E89.0 ; Personal history of malignant neoplasm of thyroid Z85.850 and Tobacco abuse Z72.0 [facility] [address] [facility] [address] [place] [address] 08/14/2023 Marcelo Alfredo [facility] [address] [facility] [address] [place] [address] 09/07/2023 Marcelo Silvestreu [facility] [address] [facility] [address] [place] [address] 01/01/2024 Marcelo Raju Postprocedural hypothyroidism E89.0 Assessments [...] Insured Coverage Start Date Coverage End Date [facility] [address] [place] [address] [id number] ARSEN WILLINGHAM Spouse - patient is the spouse of the insured 2 Medical (General) History Medical History History ICD Code PALPATATIONS MIGRAINES ANXIETY THYROID CANCER 2008 Thyroidectomy 2009 and HODGES RX 2009. Surgical History Surgery Date(Month/Year) THYROIDECTOMY-CANCER 02/12/2009 Hospitalization History Reason Date(Month/Year) vaginal 07/2010
--- OUTSIDE RECORDS SUMMARY | 2024-06-03 08:49 | XMS_ITS ---
Author Organization [facility] Address [address] [facility] [address] [place] [address] Care Team Providers Care Bow Repairer Custom Name Role Phone KAL MARTINES Primary Care Provider Un available Marcelo Fuentes Unavailable [phone] REASON FOR VISIT F/u appt Social History Sex Assigned At : Social History Observation Description Sex Assigned At Female Encounters Encounter Location Date Provider Diagnosis [facility] [address] [facility] [address] [place] [address] 09/07/2023 Mareclo Fuentes Plan Of Treatment No Information Progress Notes * ELISE THOMAS SDOB:[birth year] (43 yo F)Acc No.[id number]:09/07/2023 Patient: Corby ELISE NAVARRO :1980 A ge:43 Y S ex:Female Address:[address], [place] [address] * true * Date: Generated for Printi ng/Faxing/eTransmitting on: 0 06/03/2024 08:48 AM CDT
--- OUTSIDE RECORDS SUMMARY | 2024-06-03 08:49 | XMS_ITS ---
Author Organization [facility] Address [address] [place] [address] Care Team Providers Care Metal Room Dental Technician Name Role Phone YANNI MARTINESAna Primary Care Provider Un available Marcelo Fuentes Unavailable [phone] Adam Guevara Unavailable [phone] Allergies Allergen (clinical drug ingredient) Drug/Non Drug Allergy documented on EMR Reaction Allergy Type Onset Date Status DILATDID (uncoded) tachy Allergy A ctive NO LATEX ALLERGY (uncoded) Unknown Allergy Active tramadol traMADol itchy Drug Allergy Active Results Component Value Reference Range Notes TSH Reviewed date:09/02/2023 04:34:00 PM Interpretation:3.06 Performing Lab:[facility], [facility], [address] [place], [address] Dulce Henderson MD Notes/Report: Received Date: NON-FASTING; NON-FASTING TSH 3.06 Reference Range > or = 20 Years 0.40-4.50 Ranges First trimester 0.26-2.66 Second trimester 0.55-2.73 Third trimester 0.43-2.91 T4, FREE Reviewed date:09/02/2023 04:34:01 PM Interpretation:1.3 Performing Lab:[facility], [facility], [address] [place], [address] Dulce Henderson MD Notes/Report: Received Date: NON-FASTING; [...] 024 Encounters Encounter Location Date Provider Diagnosis [facility] [address] [facility] [address] [place] [address] 08/30/2023 Adam Guevara Postprocedural hypothyroidism E89.0 ; [...] * WILLIAM ELISE SDOB:[birth year] (43 yo F)Acc No.[id number]:08/30/2023 [facility] Patient: ELISE GEE Provider: Nain Guevara PA-C :1980 A ge:43 Y S ex:Female Date:08/30/2023 Address:[address] [place] [address] [facility] Pcp:KAL MARTINES Subjective: * Chief Complaints: [...] History: F ather: alive, diagnosed with [facility]. M other: alive. M aternal [...] This lab was reviewed by Edabdi in [facility] on 09/02/2023 at 16:34 PM CDT ?LAB: Thyroglobulin Quantitative and Antibody ?LAB: T4, FREE* Value Reference Range T 4,Free(Direct) 1.3 0.8-1.8 - ng/dL * This lab was reviewed by Edw in [facility] on 09/02/2023 at 16:34 PM CDT [...] Year * Billing Information: * Visit Code: 59125 Office Visit Est Pt Level 3. * Procedure Codes: * Sign off status: Completed true * Provider: Nain Guevara PA-C Date: 0 08/30/2023 Generated for Petrona ng/Fatobi/eTransmitting on: 0 06/03/2024 08:48 AM CDT History and Physical Notes * HPI [...]
--- OUTSIDE RECORDS SUMMARY | 2024-06-03 08:49 | XMS_ITS | Clinical Summary ---
Author Organization [facility] Address [address] [place] [address] Care Team Providers Care Drafter Construction Name Role Phone Unavailable Primary Care Provider Unavailabl e Allergies No known active allergies Medications levothyroxine (SYNTHROID) 125 mcg tablet Take 1 Tablet (125 mcg) by mouth daily aegis operations specialist. 30 Tablet 1 01/19/2017 Active FLUoxetine (PROzac) [...] on file Legal Sex Female 10:20 AM [employer] [employer] Gender Identity Not on file Sexual Orientation Not on file Occupation Industry Job Start Date Job End Date Not on file Not on file Not on file Not on file Last Filed Vital Signs Vital Sign Reading Time Taken Comments Blood Pressure 110/60 05/29/2017 4:25 PM CDT Pulse 85 03/16/2012 10:26 AM [employer] Temperature 37.6 C (99.7 F) 03/16/2012 10:26 AM [employer] Respiratory Rate 18 03/16/2012 10:26 AM [employer] Oxygen Saturation 99% 03/16/2012 10:26 AM [employer] Inhaled Oxygen Concentration - - Weight 46.7 kg (103 lb) 05/29/2017 4:25 PM CDT Height 152.4 cm (5') 05/29/2017 4:25 PM CDT Body Mass Index 20.12 05/29/2017 4:25 PM CDT Plan of Treatment Health Maintenance Due Date Last Done Comments DTAP/TDAP/TD VACCINES (1 - Tdap) 1997 HEPATITIS B VACCINES (1 of 3 - 19+ 3-dose series) 1997 BREAST CANCER SCREENING 2018 PAP SMEAR 08/02/2019 08/01/2016, 08/09/2013 CERVICAL CANCER SCREENING 08/01/2021 HPV/Cotest (21-29) 08/01/2021 08/01/2016, 08/09/2013 HPV/Cotest (30-65) 08/01/2021 08/01/2016, 08/09/2013 COLORECTAL SCREENING 07/12/2023 Colorectal Cancer Screening [...] Maintenance Results * CERV/VAG CYTOPATH, THIN PREP MEAT AND SEAFOOD CLERK AND HPV (08/01/2016 1:21 PM CDT) CLINICAL [...] has been evaluated with computer assisted technology. PIPE BUFFER: SEE COMMENT 2016 10:26 AM CDT [facility] Comment: TMK, CT(ASCP) CT screening location: [place] [address] [place] [address] HPV E6/E7 Not Detected Not Detected 08/08/2016 10:26 AM CDT [facility] Comment: This test was performed using the APTIMA HPV Assay ([employer] This assay detects E6/E7 viral messenger RNA (mRNA) from 14 high-risk HPV types (16,18,31,33,35,39,45,51,52,56,58,59,66,68). Genital SWAB OF ENDOCERVIX / Unknown 08/01/2016 1:21 PM CDT 08/01/2016 10:03 PM CDT Narrative [facility] - 08/08/2016 10:26 AM CDT Performing Organization Information: Site ID: [id number] Name: [facility] Address: [address] [address] Director: Dulce Henderson MD Cara Fowler MD PATHOLOGY/CYTOLOGY ORDERABLES Final Result [facility] from Last 3 Months or Most Recently Relevant to Health Maintenance Insurance BS BLUE ACCESS/TRUE BLUE PPO
--- OUTSIDE RECORDS SUMMARY | 2024-06-03 08:49 | XMS_ITS | Clinical Summary ---
Author Organization [facility] Address [address] [place] [address] Care Team Providers Care Keg Filler Name Role Phone Unavailable Primary Care Provider Unavailabl e Source Comments [facility],non-owned Affiliates and Associated Physician Practices is amultiple site organization consisting of ambulatory clinics and hospital sitesin [place], [place], [place] and [place]. This disclosure is being madepursuant to the Care Everywhere program and may not contain all information available regarding this patient. Last updated 17.[facility] Social History Tobacco Use Types Packs/Day Years Used Date Smoking Tobacco: Never Assessed Comments Unknown Sex and Gender Information Value Date Recorded Sex Assigned at Not on file Legal Sex Female 2:06 PM CDT Gender Identity Not on file Sexual Orientation [...] SCREENING 1980 LIPID TESTING 1980 MAMMOGRAM 1978 HIV SCREENING 1993 HEPATITIS C SCREENING 07/06/1996 DTAP/TDAP/TD VACCINES (1 - Tdap) 1997 HEPATITIS B VACCINE (1 of 3 - 19+ 3-dose series) 1997 COVID-19 VACCINE (1 - 2023-2 5 season) 2023 DEPRESSION SCREENING 02/14/2024 INFLUENZA VACCINE (Season Ended) 2024 ZOSTER VACCINE (1 of 2) 2028 HIB [...] on patient's age to complete this topic Insurance [facility] Address: [facility] [id number] [place] [address]
[2024-06-03] MEDS: LACTATED RINGERS 1,000 ML 150 ML IV CONT (09:02)
--- NOTE | 2024-06-03 09:54 | PM.IMHP ---
H&P: HPI History of Present Illness Date/Time: 06/03/24 09:54 Chief Complaint: Screening colonoscopy Narrative: This is the patient's first colonoscopy. There are no GI symptoms and there is no family history of colorectal cancer. Review of Systems Review of Systems: ROS unobtainable: Yes unobtainable due to endotracheal tube PMFSH Past Medical History Medical History Vitamin D deficiency, unspecified Lateral epicondylitis of right elbow Migraine Depression Breast mass, right Hypothyroidism (acquired) History of thyroid cancer (~2008) Chronic neck pain Anxiety Surgical History Surgical History H/O thyroidectomy (~2008) Family History Family History Father Alcoholism Grandparent Cancer Maternal great grandmother Breast Cancer Heart disease Cerebrovascular accident Maternal grandpa Alcoholism Hypertension Maternal Grandfather Daughter Anxiety and depression Son Anxiety and depression Social History Social History Smoking packs per day: 0.25 Smoking cigarettes per day: 5.0 Years smoked: 20 Smoking pack-years: 5.00 Smoking status: Current every day smoker Tobacco type: cigarettes Alcohol intake: never Substance use: never Substance use type: does not use Lack of Transportation: No Lack of Food: Never True Current Housing: I Have Housing Concerned About Future Housing: No Difficulty Paying Gas/Electric Bills: No Difficulty Paying for Meds: No Currently Unemployed: No Education: High School Diploma/GED Difficulty w/ Childcare or Family Care: No Living arrangements: with family Additional living arrangements comments: Occupation/Education: occupation Gender identity (if verbalized by the patient): Female Sexual Orientation (if Verbalized by the Patient): Straight or Heterosexual Spiritual care concerns: No Agree to blood products: Yes Meds Home Medications and Allergies Home Medications ?Medication ?Instructions ?Recorded ?Confirmed ?Type cholecalciferol (vitamin D3) 50 50 mcg PO DAILY #90 tabs 08/28/23 06/03/24 Rx mcg (2,000 unit) tablet fluoxetine 20 mg capsule 20 mg PO DAILY #90 caps 04/15/24 06/03/24 Rx levothyroxine 75 mcg tablet 75 mcg PO DAILY #90 tabs 04/23/24 06/03/24 Rx (Synthroid) atogepant 10 mg tablet (Qulipta) See Rx Instructions .Route 06/03/24 Rx .COMPLEX #30 tabs Allergies Allergy/AdvReac Type Severity Reaction Status Date / Time hydromorphone (From Dilaudid) Allergy Severe Shortness Verified 06/03/24 08:30 of breath tramadol Allergy Itching Verified 06/03/24 08:30 Vital Signs Vital Signs - 24 hr 06/03/24 08:40 Temperature 97.4 F L Pulse Rate 96 Respiratory Rate 16 Blood Pressure 100/82 Pulse Oximetry 100 Oxygen Delivery Room Air Exam Const: General: cooperative and healthy appearing Resp: Effort & Inspection: normal respiratory effort and able to speak in complete sentences Auscultation: clear to auscultation bilaterally Cardio: Rate: regular rate Rhythm: regular rhythm GI: Inspection: normal to inspection GI Palp: No No hepatosplenomegaly present Auscultation: normal bowel sounds Rectal Exam: deferred Skin: General skin exam: normal color Psych: Appearance: grossly normal Mental Status: mental status grossly normal Assessment and Plan Assessment and plan (1) Encounter for screening colonoscopy: Code(s): Z12.11 - Encounter for screening for malignant neoplasm of colon Status: Acute Assessment and Plan: The patient is deemed a good candidate for the procedure. Consent signed. Will proceed.
[2024-06-03] MEDS: SIMETHICONE ORAL SUSPENSION 20 MG/0.3 ML 30 ML BOTTLE 0.6 ML IRRIGATION (10:12)
[2024-06-03 10:19] VITALS: BP 104/64; PULSE 74; RESP 14; O2SAT 95
[2024-06-03 10:29] VITALS: BP 103/72; PULSE 70; RESP 16; O2SAT 100
[2024-06-03 10:39] VITALS: BP 109/69; PULSE 64; RESP 16; O2SAT 100
--- NOTE | 2024-06-03 12:21 | WPDANESPN ---
Anes - Prog Note Post-Op Date/Time: 06/03/24 12:21 Cardiovascular status: normal Respiratory status: normal Airway patency: baseline Mental status: baseline Post-Op hydration status: normal Vital Signs: Last Vital Signs Temp 36.3 C L 06/03/24 08:40 Pulse 64 06/03/24 10:39 Resp 16 06/03/24 10:39 BP 109/69 06/03/24 10:39 Pulse Ox 100 06/03/24 10:39 O2 Del Method Room Air 06/03/24 10:39 Pain Score (VAS): 0 I/O: Intake & Output 06/02/24 06/03/24 06/03/24 23:59 07:59 15:59 Intake Total 550 Balance 550 Post-procedural complaints: none Patient Feedback: Patient satisfied with anesthetic care. Other Findings: Patient vital signs back to baseline. Patient denies nausea and vomiting. Patient's pain under control. Patient OK for discharge.
== END 2024-06-03 11:00 | disposition home or self-care (01) ==
PROVIDERS: PCP Family Medicine; Visit Provider Internal Medicine Gastroenterology
PROC: 0DJD8ZZ Inspection of Lower Intestinal Tract, Via Natural or Artificial Opening Endoscopic (ICD-10-PCS; CPT 45378; principal; 2024-06-03 10:00)
DX: Z12.11 Encounter for screening for malignant neoplasm of colon (principal)
CPT/HCPCS: 45378

== ENCOUNTER 2024-09-03 10:09 | Outpatient (CLI) | payer OTHER, SELFPAY ==
--- NOTE | ~2024-09-03 | XR_ITS ---
EXAMINATION: SACRUM/COCCYX DATE: 09/03/2024 10:27 INDICATION: Sacrococcygeal disorder TECHNIQUE: Three views sacrum/coccyx FINDINGS: There is no displaced fracture of the sacrum. The coccyx demonstrates overall normal morphology with out acute angulation. IMPRESSION: 1. No acute displaced osseous abnormality of the sacrum. Suspicion for occult or nondisplaced sacral fracture can either be evaluated with CT or MRI. 2. Grossly normal morphology to the coccyx without acute angulation. However, due to the wide range of normal variation of the coccyx, acute injury would be best evaluated by clinical examination and patient's symptoms. Reviewed, dictated and finalized at location A.
== END 2024-09-03 10:10 | disposition home or self-care (01) ==
PROVIDERS: PCP Family Medicine; Visit Provider Family Medicine
DX: M53.3 Sacrococcygeal disorders, not elsewhere classified (principal)
CPT/HCPCS: 72220

== ENCOUNTER 2024-09-11 13:52 | Outpatient (CLI) | payer OTHER, SELFPAY ==
--- NOTE | ~2024-09-11 | MM_ITS ---
EXAMINATION: MM screening ashely BI w reuben HISTORY: Screening TECHNIQUE: Craniocaudal and mediolateral oblique 3-D tomosynthesis images were obtained and synthetic 2-D images were generated. CAD analysis was submitted and interpreted. COMPARISON: Comparison to multiple prior studies sequentially, with oldest reviewed study dated 09/08. BREAST PARENCHYMAL COMPOSITION: Dense: The breasts are heterogeneously dense, which may obscure small masses FINDINGS: There is no evidence of suspicious mass, calcification, or architectural distortion to sugg est malignancy in either breast. There has been no suspicious interval change. IMPRESSION: 1. No mammographic evidence of malignancy. 2. Recommend routine screening mammography in one year. BI-RADS Category 1: Negative Reviewed, dictated and finalized at location B.
--- OUTSIDE RECORDS SUMMARY | 2024-09-11 14:05 | XMS_ITS | Clinical Summary ---
Author Organization [employer] Edgar Aguilar Address [address] [place] [address] Care Team Providers Care Belt Repairer Name Role Phone Unavailable Primary Care Provider Unavailabl e Allergies No known active allergies Medications levothyroxine (SYNTHROID) 125 mcg tablet Take 1 Tablet (125 mcg) by mouth daily adult basic education instructor. 30 Tablet 1 01/19/2017 Active FLUoxetine (PROzac) [...] on file Legal Sex Female 10:20 AM BUTCHER HEAD Gender Identity Not on file Sexual Orientation Not on file Occupation Industry Job Start Date Job End Date Not on file Not on file Not on file Not on file Last Filed Vital Signs Vital Sign Reading Time Taken Comments Blood Pressure 110/60 05/29/2017 4:25 PM CDT Pulse 85 03/16/2012 10:26 AM BUTCHER HEAD Temperature 37.6 C (99.7 F) 03/16/2012 10:26 AM BUTCHER HEAD Respiratory Rate 18 03/16/2012 10:26 AM BUTCHER HEAD Oxygen Saturation 99% 03/16/2012 10:26 AM BUTCHER HEAD Inhaled Oxygen Concentration - - Weight 46.7 [...] Q 5 years 07/12/2023 INFLUENZA VACCINE (#1) 2024 HPV VACCINES Aged Out No longer eligi ble based on patient's age to complete this topic Procedures Procedure Name Priority Date/Time Associated Diagnosis Comments CERV/VAG CYTO SCREEN PAP W/HPV Routine 08/01/2016 1:21 PM CDT Screening for malignant neoplasm of cervix from Last 3 Months or Most Recently Relevant to Health Maintenance Results * CERV/VAG CYTOPATH, THIN PREP RIVET HOLE MACHINE OPERATOR AND HPV (08/01/2016 1:21 PM CDT) CLINICAL [...] has been evaluated with computer assisted technology. ICT PROGRAMMER: SEE COMMENT 2016 10:26 AM CDT [facility] Comment: TMK, CT(ASCP) CT screening location: [place] [address] [place] [address] HPV E6/E7 Not Detected Not Detected 08/08/2016 10:26 AM CDT [facility] Comment: This test was performed using the APTIMA HPV Assay ([employer] This assay detects E6/E7 viral messenger RNA (mRNA) from 14 high-risk HPV types (16,18,31,33,35,39,45,51,52,56,58,59,66,68). Genital SWAB OF ENDOCERVIX / Unknown 08/01/2016 1:21 PM CDT 08/01/2016 10:03 PM CDT Narrative [facility] - 08/08/2016 10:26 AM CDT Performing Organization Information: Site ID: SL [facility] Address: [address] [address] Director: Dulce Henderson MD Cara Fowler MD PATHOLOGY/CYTOLOGY ORDERABLES Final Result [facility] from Last 3 Months or Most Recently Relevant to Health Maintenance Insurance BS BLUE ACCESS/TRUE BLUE PPO
--- OUTSIDE RECORDS SUMMARY | 2024-09-11 14:05 | XMS_ITS | Clinical Summary ---
Author Organization [facility] Address [address] [place] [address] Care Team Providers Care Automotive Quality Manager Name Role Phone Unavailable Primary Care Provider Unavailabl e Source Comments [facility],non-owned Affiliates and Associated Physician Practices is amultiple site organization consisting of ambulatory clinics and hospital sitesin [place], [place], [place] and [place]. This disclosure is being madepursuant to the Care Everywhere program and may not contain all information available regarding this patient. Last updated 17.[facility] Social History Tobacco Use Types Packs/Day Years [...] season) 2023 DEPRESSION SCREENING 02/14/2024 INFLUENZA VACCINE (#1) 2024 ZOSTER VACCINE (1 of 2) 2028 [...]
--- OUTSIDE RECORDS SUMMARY | 2024-09-11 14:05 | XMS_ITS | Patient Health Record ---
Author Organization [facility] Address [address] [place] [address] Care Team Providers Care Sheriff Officer Name Role Phone KAL MARTINES Primary Care Provider Un available Marcelo Fuentes Unavailable [phone] Allergies Allergen (clinical drug ingredient) Drug/Non Drug Allergy documented on EMR Reaction Allergy Type Onset Date Status DILATDID (uncoded) tachy Allergy A ctive NO LATEX ALLERGY (uncoded) Unknown Allergy Active tramadol traMADol itchy Drug Allergy Active Reason For Referral No Information Medications Medication SIG (Take, Route, Frequency, Duration) Notes Start Date End Date Status Levothyroxine Sodium 75 MCG TAKE 1 TABLE T BY MOUTH ONCE DAILY ON MONDAY THROUGH MONDAY AND 2 TABLETS ON MONDAY; Duration: 90 days Active BUPROPION (EQV-ZYBAN ADVANTAGE PACK) 150 mg/12 hours 1 tab(s) orally 2 times a day; Duration: 90 days Active Social History Tobacco Use: [...] Problem Status W/U Status Risk Notes Problem Postoperative Hypothyroidism (36137203) Postprocedural hypothyroidism (E89.0) Active confirmed Problem Personal history of malignant neoplasm of thyroid (Z85.850) Active confirmed Encounters Encounter Location Date Provider Diagnosis [facility] [address] [place] [address] 01/01/2024 Marcelo Fuentes Postprocedural hypothyroidism E89.0 Assessments Encounter Date Diagnosis (ICD Code) Assessment Notes Treatment Notes Treatment Clinical Notes Section Notes 01/01/2024 Postprocedural hypothyroidism (ICD-10 - E89.0) Plan Of Treatment Pending Test Test Name Order Date Ultrasound : Head, Neck, Thyroid 024 Thyroglobulin Quantitative and Antibody 08/30/2023 Insurance Providers Payer Name Payer Address Payer Phone Subscriber Number Group Number Insured Name Patient Relationship to Insured Coverage Start Date Coverage End Date [facility] [address] [place] [address] [id number] ARSEN WILLINGHAM Spouse - patient is the spouse of the insured 2 Medications Administered Medication Instructions Date of Administration Dosage Notes Rhogam 05/31/2010 Medical (General) History Medical History History ICD Code PALPATATIONS MIGRAINES ANXIETY THYROID CANCER 2008 Thyroidectomy 2009 and [facility]GES RX 2009. Surgical History Surgery Date(Month/Year) THYROIDECTOMY-CANCER 02/12/2009 Hospitalization History Reason Date(Month/Year) vaginal 07/2010
== END 2024-09-11 13:53 | disposition home or self-care (01) ==
LOC: ANHIMG 13:54
PROVIDERS: PCP Family Medicine; Visit Provider Family Medicine
DX: Z12.31 Encounter for screening mammogram for malignant neoplasm of breast (principal)
CPT/HCPCS: 77063; 77067